=== PATIENT | female | born 1955 | race Caucasian/White ===

== ENCOUNTER 2018-01-29 09:20 | Outpatient (CLI) | payer BC ==
--- NOTE | 2018-01-29 10:51 | ULT ---
RIGHT UPPER QUADRANT ULTRASOUND: Date: 01-29-18 Comparison: None. History: Right upper quadrant pain. Technique: Multiplanar grayscale sonographic imaging of the right upper quadrant obtained. FINDINGS: The imaged pancreas is grossly unremarkable. Portions of the head of the pancreas as well as the tail and distal body are obscured by bowel gas. No focal liver lesion is seen. The liver is heterogeneous and echogenic suggesting hepatocellular dis ease, such as hepatic steatosis. No gallbladder wall thickening or pericholecystic fluid. No gallstones are noted. Right kidney measures 9.9 cm in craniocaudal dimension and demonstrates no evidence for stone, hydron ephrosis or mass. The common bile duct measures 5 mm, within normal limits. IMPRESSION: 1. Abnormal echogenicity of the hepatic parenchyma as described above. 2. No evidence for cholelithiasis or cholecystitis, or biliary dilatation. POS: [facility]
== END 2018-01-29 09:21 | disposition home or self-care (01) ==
LOC: ULT 09:20
PROVIDERS: ATTEND Internal Medicine Gastroenterology
DX: K51.90 Ulcerative colitis, unspecified, without complications (principal); K62.5 Hemorrhage of anus and rectum; R10.11 Right upper quadrant pain
CPT/HCPCS: 76705

== ENCOUNTER 2018-02-16 07:40 | Outpatient (CLI) | payer BC ==
--- NOTE | 2018-02-16 11:35 | NM ---
HEPATOBILIARY SCAN: HISTORY: Right upper quadrant abdominal pain. TECHNIQUE: A hepatobiliary scan was performed after the administration of 5.2 millicuries of technetium 99m mebr ofenin. FINDINGS: Prompt uptake of the radiopharmaceutical by the liver is seen. No photopenic liver lesions are seen. Gallbladder and biliary activity are seen within 5 minutes. Bowel activity is seen within 1 hour. After the administration of 8 oz of Ensure p.o., a gallbladder ejection fraction was estimated at 79 %. IMPRESSION: Normal hepatobiliary scan. POS: [facility]
== END 2018-02-16 07:41 | disposition home or self-care (01) ==
LOC: NM 07:40
PROVIDERS: ATTEND Internal Medicine Gastroenterology
DX: R10.11 Right upper quadrant pain (principal)
CPT/HCPCS: 78227; A9537

== ENCOUNTER 2018-02-22 08:11 | Outpatient (CLI) | payer BC ==
[2018-02-22] MEDS ORDERED: ISOVUE-370 76%-LOCM 1 ML ONE (15:49)
== END 2018-02-22 08:12 | disposition home or self-care (01) ==
LOC: BICCT 08:11
PROVIDERS: ATTEND Internal Medicine Gastroenterology
DX: R10.11 Right upper quadrant pain (principal); K44.9 Diaphragmatic hernia without obstruction or gangrene; K57.90 Diverticulosis of intestine, part unspecified, without perforation or abscess without bleeding; I70.90 Unspecified atherosclerosis
CPT/HCPCS: 74177